=== PATIENT | male | born 1980 | race African-American/Black ===

== ENCOUNTER 2016-07-10 04:02 | Emergency (ER) | payer OTHER ==
[2016-07-10 04:14] VITALS: TEMP 97.4; BMI 20.7
--- NOTE | 2016-07-10 04:29 | EDPRACDOC ---
- General Information Chief Complaint: Earache Stated Complaint: EAR PAIN Time Seen by Provider: 07/10/16 04:27 Information Source: Patient Home Medications: Home Medications Ibuprofen Tablet [Motrin] 600 mg PO Q6H #30 tab 09/29/15 Oxycodone HCl [Roxicodone] 5 mg PO Q4-6H PRN #15 tablet 09/29/15 Prednisone [Deltasone, Orasone] 50 mg PO DAILY #5 tab 09/29/15 Azithromycin [Zithromax] 0 mg PO DAILY #6 tablet 07/10/16 Allergies/Adverse Reactions: Allergies Allergy/AdvReac Type Severity Reaction Status Date / Time Penicillins Allergy Unknown See Verified 09/28/15 21:13 Comments - History of Present Illness Onset: 3 days ago Location: right ear Recently Treated Ear Infection: Reports: Yes Pain Severity: Reports: Mild Associated Signs & Symptoms: Reports: None ED Past Medical History - History Reviewed Yes Nurses notes reviewed and agree except as marked - Patient Medical History Psychological History: Denies: Depression Systemic History: Denies: Cancer Additional Past Medical History: NEUROFIBROMATOSIS - Family Medical History Denies: Hypertension, Diabetes, Cancer, Stroke, Cardiac Disorders - Social Medical History Smoking Status: Never smoker EDM Review of Systems - Review of Systems ROS Negative Except as Marked: Yes All systems reviewed and were negative except as marked - Physical Exam Constitutional: Alert (Awake), No apparent distress Oriented to: Time, Person, Place Last recorded Vital Signs: Last Vital Signs Temp 97.4 F L 07/10/16 04:11 Pulse 80 07/10/16 04:11 Resp 18 07/10/16 04:11 BP 159/92 07/10/16 04:11 Pulse Ox 97 07/10/16 04:11 Oxygen Pulse Oxygen Saturation 97 O2 Device Room Air Oxygen Flow Rate Fraction of Inspired Oxygen ( FIO2) - HEENT Head: Normal ( normocephalic) Eye Exam: Normal (PERRL, EOMI, Sclera white) Oropharynx: Normal (Pharynx:Moist without exudate,Gums-no swelling) Tympanic Membrane: Normal ENT EAC: Normal TMJ: Normal Nose: No Symptoms Reported (septum midline) Neck: Normal (FROM, trachea at midline) - Respiratory/Cardiovascular Respiratory: Normal - CTA (BBS clear to auscultation without adventitious sounds ) Cardiovascular: Normal (RRR without murmur, gallop or rub) - GI Auscultation: Normal (NABS) Palpation: Normal (Soft,No rebound or guarding, non distended) Tenderness: Non tender Ogden's Sign: Negative - Musculoskeletal Back: Normal (Non-Tender) Extremities: Normal (Normal tone, Pulses 2+ No cyanosis or edema, FROM) - Integumentary Skin: Normal, Warm, Dry Lymphatics: Normal (no adenopathy) - Neurologic Memory Impaired: Normal Motor Function: Normal (Normal tone, Pulses 2+ No cyanosis or edema, FROM) Cranial Nerve: Normal (CN II-X11 intact sensation, strength 5/5) Cerebellar: Normal Mood Description: Normal Perception: Normal Decision Time to Discharge: 04:28 - Departure Yes I personally saw and evaluated the patient. Disposition: Home Condition: Good Final Diagnosis: Otitis media Instructions: Otitis Media (ED) Education/Counseling Given To: Patient Education/Counseling Given Regarding: Diagnosis, Treatment, Prognosis Referrals: None,No Provider [Primary Care Provider] - One Week Rolando Keane II, MD [Staff Physician] - One Week Prescriptions: Azithromycin [Zithromax] 0 mg PO DAILY #6 tablet
[2016-07-10 05:08] VITALS: BP 153/88; PULSE 78
== END 2016-07-10 04:37 | disposition home or self-care (01) ==
LOC: ED 04:02
DX: H66.91 Otitis media, unspecified, right ear (principal)
CPT/HCPCS: 99283